=== PATIENT | female | born 1955 | race Two or more races ===

== ENCOUNTER 2022-03-14 18:29 | Emergency (ER) | payer OTHER ==
[~2022-03-14] VITALS: Ht 165.1 cm; Wt 77.6 kg
[2022-03-14 19:05] VITALS: BP_SYST 124
[2022-03-14] MEDS ORDERED: CEPH-548 PO (19:44)
[2022-03-14 20:27] VITALS: BP_SYST 124
== END 2022-03-14 20:27 | disposition home or self-care (01) ==
LOC: SED 18:29
DX: L03.115 Cellulitis of right lower limb (principal); R22.41 Localized swelling, mass and lump, right lower limb; Z79.899 Other long term (current) drug therapy
CPT/HCPCS: 93971; 99284

== ENCOUNTER 2022-05-16 20:04 | Emergency (ER) | payer OTHER ==
[~2022-05-16] VITALS: Ht 165.1 cm; Wt 74.4 kg
[~2022-05-16 20:04] MED LIST: CEPH-548 PO
[2022-05-16 20:18] VITALS: BP_SYST 132
[2022-05-16] MEDS ORDERED: NIRM1TAB5 PO (21:46)
[2022-05-16] MEDS ORDERED: BENZ100C92 PO (21:47)
[2022-05-16 22:26] VITALS: BP_SYST 156
== END 2022-05-16 22:26 | disposition home or self-care (01) ==
LOC: SED 20:04
DX: U07.1 COVID-19 (principal); J06.9 Acute upper respiratory infection, unspecified; Z79.899 Other long term (current) drug therapy
CPT/HCPCS: 36415; 99283

== ENCOUNTER 2022-06-21 08:07 | Emergency (ER) | payer OTHER ==
[~2022-06-21] VITALS: Ht 165.1 cm; Wt 77.1 kg
[~2022-06-21 08:07] MED LIST changes: +BENZ100C92 PO; +NIRM1TAB5 PO
[2022-06-21 08:10] VITALS: BP_SYST 162
[2022-06-21 08:56] LABS: BASOPHILS % (AUTO) 0.7 % (0.0-2.0); EOSINOPHILS # (AUTO) 0.1 K/uL (0.0-0.4); EOSINOPHILS % (AUTO) 2.8 % (0.0-4.0); HEMATOCRIT 37.5 % (36-48); HEMOGLOBIN 12.6 g/dL (12.0-16.0); LYMPHOCYTES # (AUTO) 1.3 K/uL (1.0-5.5); LYMPHOCYTES % (AUTO) 29.7 % (20.5-51.5); MEAN CORPUSCULAR HEMOGLOBIN 31 pg (27-31); MEAN CORPUSCULAR HGB CONC 34 % (32-36); MEAN CORPUSCULAR VOLUME 93 fL (79.0-98.0); MONOCYTES # (AUTO) 0.5 K/uL (0.0-1.0); MONOCYTES % (AUTO) 10.5 % (1.7-9.3); NEUTROPHILS # (AUTO) 2.5 K/uL (1.8-7.7); NEUTROPHILS % (AUTO) 56.3 % (40.0-70.0); PLATELET COUNT (AUTO) 211 K/uL (130-430); RED BLOOD CELL COUNT(AUTO) 4.05 MIL/uL (4.2-6.2); WHITE BLOOD COUNT (AUTO) 4.4 K/uL (4.8-10.8)
[2022-06-21 09:09] LABS: ANION GAP 8 (5-15); CALCIUM 8.6 mg/dL (8.4-11.0); CHLORIDE 105 mmol/L (98-107); CREATININE 0.62 mg/dL (0.55-1.30); GLUCOSE 70 mg/dL (70-99); UREA NITROGEN, BLOOD 20 mg/dL (8-21)
[2022-06-21 09:16] LABS: ALANINE AMINOTRANSFERASE 33 U/L (12-78); ALBUMIN 3.4 g/dL (3.4-4.8); ASPARTATE AMINOTRANSFERASE 17 U/L (10-37); GFR AFRICAN AMERICAN 123 mL/min (>90); TOTAL BILIRUBIN 0.3 mg/dL (0.0-1.0)
[2022-06-21] MEDS ORDERED: MECL-261 PO (10:04)
== END 2022-06-21 10:47 | disposition home or self-care (01) ==
LOC: SED 08:07
DX: R42 Dizziness and giddiness (principal); R03.0 Elevated blood-pressure reading, without diagnosis of hypertension; F41.9 Anxiety disorder, unspecified; Z79.899 Other long term (current) drug therapy
CPT/HCPCS: 36415; 71045; 80053; 84484; 85025; 93005; 99285

== ENCOUNTER 2022-07-26 18:31 | Emergency (ER) | payer OTHER ==
[~2022-07-26 18:31] MED LIST changes: +MECL-261 PO
[2022-07-26] MEDS ORDERED: CEPH-548 PO (19:19)
[2022-07-26] MEDS ORDERED: NAPR-1172 PO (19:19)
--- NOTE | 2022-07-26 19:47 | NUR ---
Triage assignment received at this time, this patient was discharged by Dr Talley,I did not see the patient, no triage was done when pt arrived ,this nurse did not see the patient.
== END 2022-07-26 19:24 | disposition home or self-care (01) ==
LOC: SED 18:31
DX: I83.812 Varicose veins of left lower extremity with pain (principal); I10 Essential (primary) hypertension; Z79.899 Other long term (current) drug therapy
CPT/HCPCS: 99281

== ENCOUNTER 2023-09-17 06:27 | Day surgery (SDC) | payer OTHER ==
[~2023-09-17] VITALS: Ht 165.1 cm; Wt 81.6 kg
[~2023-09-17 06:27] MED LIST changes: +NAPR-1172 PO
[2023-09-17] MEDS ORDERED: SIMETHICONE 40 MG/0.6 ML ML ONE (07:41)
[2023-09-17] MEDS ORDERED: MEPERIDINE 100 MG INJ. 100 MG/ML VIAL ONE (07:41)
[2023-09-17] MEDS ORDERED: MIDAZOLAM HCL 5 MG/5 ML VIAL ONE (07:41)
[2023-09-17 08:11] VITALS: O2SAT 100
[2023-09-17 12:19] VITALS: BP_SYST 100; PULSE 61; RESP 13
== END 2023-09-17 09:44 | disposition home or self-care (01) ==
LOC: SDS 06:27 → SMU 06:31 → SDS 09:44
PROVIDERS: ATTEND Student in an Organized Health Care Education/Training Program
DX: R19.5 Other fecal abnormalities (principal); K57.30 Diverticulosis of large intestine without perforation or abscess without bleeding; K64.8 Other hemorrhoids; Z80.0 Family history of malignant neoplasm of digestive organs; I10 Essential (primary) hypertension; E78.5 Hyperlipidemia, unspecified; Z79.899 Other long term (current) drug therapy
CPT/HCPCS: 45378; 99152; 99153; G0378; J2250; J2175